=== PATIENT | male | born 1935 | race Caucasian/White ===

== ENCOUNTER 2022-06-24 21:44 | Inpatient (IN) | payer MEDICARE, OTHER ==
[~2022-06-24] VITALS: Ht 162.6 cm; Wt 95.3 kg
[2022-06-24] MEDS ORDERED: CEFEPIME HCL 1 G in IV DEXTROSE 5% 50 ML IV ONE (22:15)
[2022-06-24] MEDS ORDERED: NOREPINEPHRINE BITARTRATE 8 MG in IV NORMAL SALINE 250 ML IV ONE (22:15)
[2022-06-24] MEDS ORDERED: VANCOMYCIN IV 1,000 MG in IV DEXTROSE 5% 250 ML IV ONE (22:15)
[2022-06-24] MEDS ORDERED: CEFEPIME HCL 1 G VIAL ONE (22:33)
[2022-06-24] MEDS ORDERED: VANCOMYCIN IV 200 ML ONE (22:33)
[2022-06-24 22:41] LABS: MEAN CORPUSCULAR HEMOGLOBIN 30.6 uug (23.8-33.4); MEAN CORPUSCULAR VOLUME 95.3 fL (73.0-96.2); PLATELET COUNT (AUTO) 110 K/uL (152-348)
[2022-06-24 22:50] LABS: NEUTROPHILS % (MANUAL) 0 % (42-75)
[2022-06-24 22:58] LABS: *BILIRUBIN,URIN 1+ (NEGATIVE); *BLOOD, URINE NEGATIVE (NEGATIVE); *CLARITY,URINE CLEAR (CLEAR); *COLOR,URINE YELLOW (YELLOW); *KETONES,URINE NEGATIVE (NEGATIVE); *UROBILINOGEN,URINE 0.2 E.U./dl (NORMAL); LEUKOCYTE ESTERASE ,URINE NEGATIVE (NEGATIVE); NITRITE, URINE NEGATIVE (NEGATIVE); UGLUCOSE NEGATIVE (NEGATIVE)
[2022-06-24] MEDS ORDERED: PREG150C PO (23:03)
[2022-06-24] MEDS ORDERED: ALLO300T2 PO (23:03)
[2022-06-24] MEDS ORDERED: PANT40TA49 PO (23:03)
[2022-06-24] MEDS ORDERED: metoprolol PO (23:03)
[2022-06-24] MEDS ORDERED: ATOR40TA PO (23:03)
[2022-06-24] MEDS ORDERED: LISI20TA30 PO (23:03)
[2022-06-24] MEDS ORDERED: FURO40TA5 PO (23:03)
[2022-06-24] MEDS ORDERED: WARF1TAB2 PO (23:03)
[2022-06-24 23:06] LABS: ALANINE AMINOTRANSFERASE 33 U/L (16-63); ALKALINE PHOSPHATASE 71 U/L (50-136); ASPARTATE AMINOTRANSFERASE 39 U/L (15-37); BILIRUBIN,DIRECT 0.3 mg/dL (0.0-0.2); BILIRUBIN,TOTAL 0.6 mg/dL (0.2-1.0); CARBON DIOXIDE 27 mmol/L (21-32); CHLORIDE 109 mmol/L (98-107); CREATININE 2.2 mg/dL (0.6-1.3); GLUCOSE 102 mg/dL (74-106); POTASSIUM 3.9 mmol/L (3.5-5.1); UREA NITROGEN, BLOOD 61 mg/dL (7-18)
[2022-06-25] VITALS (32 sets, daily range): BP systolic 75–149; BP diastolic 36–79
[2022-06-25] MEDS ORDERED: MORPHINE SULFATE 2 MG/1 ML DISP.SYRIN IVP PRN (01:30)
[2022-06-25] MEDS ORDERED: ONDANSETRON 4 MG/2 ML VIAL IV PRN (01:30)
[2022-06-25 01:55] LABS: CARBON DIOXIDE 24 mmol/L (21-32); CHLORIDE 107 mmol/L (98-107); CREATININE 2.1 mg/dL (0.6-1.3); GLUCOSE 174 mg/dL (74-106); POTASSIUM 3.8 mmol/L (3.5-5.1); UREA NITROGEN, BLOOD 61 mg/dL (7-18)
[2022-06-25] MEDS ORDERED: PANTOPRAZOLE SODIUM IV 80 MG in IV DEXTROSE 5% 500 ML IV ONE (02:15)
[2022-06-25] MEDS ORDERED: PANTOPRAZOLE SODIUM 40 MG VIAL IV ONE (02:15)
[2022-06-25 02:18] LABS: *OCCULT BLOOD STOOL NEGATIVE (NEGATIVE)
[2022-06-25 02:26] LABS: MEAN CORPUSCULAR HEMOGLOBIN 30.3 uug (23.8-33.4); MEAN CORPUSCULAR VOLUME 95.1 fL (73.0-96.2); PLATELET COUNT (AUTO) 127 K/uL (152-348)
[2022-06-25] MEDS ORDERED: PANTOPRAZOLE SODIUM 40 MG VIAL ONE ×2 (02:30→22:44)
[2022-06-25] MEDS ORDERED: DIGOXIN 500 MCG/2 ML AMP IV ONE (03:15)
[2022-06-25] MEDS ORDERED: VASOPRESSIN 20 UNIT in IV NORMAL SALINE 40 ML IV PRN (04:00)
[2022-06-25] MEDS ORDERED: VASOPRESSIN 20 UNIT/ML VIAL ONE (05:23)
[2022-06-25] MEDS ORDERED: FUROSEMIDE 40 MG/4 ML VIAL IV SCH (09:00)
[2022-06-25] MEDS ORDERED: WARFARIN SODIUM 1 MG TABLET PO SCH (09:00)
[2022-06-25] MEDS ORDERED: DOCUSATE SODIUM 100 MG CAPSULE PO ONE ×2 (09:16→18:15)
[2022-06-25] MEDS ORDERED: ALLOPURINOL 100 MG TABLET ONE (09:17)
[2022-06-25] MEDS ORDERED: PREGABALIN 100 MG CAPSULE ONE (09:23)
[2022-06-25] MEDS ORDERED: PREGABALIN 50 MG CAPSULE ONE (09:27)
[2022-06-25] MEDS: DOCUSATE SODIUM 100 MG CAPSULE PO SCH ×2 (09:31→17:00)
[2022-06-25] MEDS: ALLOPURINOL 300 MG TABLET PO SCH (09:31)
[2022-06-25] MEDS: PREGABALIN 50 MG CAPSULE PO SCH (09:31)
[2022-06-25] MEDS: PHENYLEPHRINE IV 100 MG in IV NORMAL SALINE 240 ML IV PRN ×2 (09:40→22:21)
[2022-06-25] MEDS ORDERED: IV NORMAL SALINE 500 ML IV ONE (12:30)
[2022-06-25] MEDS ORDERED: CEFEPIME HCL 1 G VIAL ONE (18:14)
[2022-06-25] MEDS: CEFEPIME HCL 1 G in IV DEXTROSE 5% 50 ML IV SCH (18:30)
[2022-06-25 19:11] LABS: *OCCULT BLOOD STOOL POSITIVE (NEGATIVE)
[2022-06-25] MEDS: ATORVASTATIN 40 MG TABLET PO SCH (20:46)
[2022-06-25 22:43] LABS: HEMATOCRIT 34.4 % (36.7-47.1); MEAN CORPUSCULAR HEMOGLOBIN 30.5 uug (23.8-33.4); MEAN CORPUSCULAR VOLUME 94.5 fL (73.0-96.2); PLATELET COUNT (AUTO) 154 K/uL (152-348)
[2022-06-25] MEDS ORDERED: ACETAMINOPHEN 325 MG TABLET ONE (22:44)
[2022-06-25] MEDS: ACETAMINOPHEN 325 MG TABLET PO PRN (22:46)
[2022-06-25] MEDS: PANTOPRAZOLE SODIUM 40 MG VIAL IV SCH (22:46)
[2022-06-26] VITALS (26 sets, daily range): BP systolic 101–133; BP diastolic 45–74
[2022-06-26 02:13] LABS: EOSINOPHILS % (MANUAL) 2 % (0-8); LYMPHOCYTES % (MANUAL) 21 % (20-40); MONOCYTES % (MANUAL) 23 % (2-10); NEUTROPHILS % (MANUAL) 54 % (42-75)
[2022-06-26] MEDS ORDERED: CEFEPIME HCL 1 G VIAL ONE (05:00)
[2022-06-26] MEDS: CEFEPIME HCL 1 G in IV DEXTROSE 5% 50 ML IV SCH ×2 (05:10→17:23)
[2022-06-26 05:20] LABS: HEMATOCRIT 32.4 % (36.7-47.1); MEAN CORPUSCULAR HEMOGLOBIN 30.4 uug (23.8-33.4); MEAN CORPUSCULAR VOLUME 94.5 fL (73.0-96.2); PLATELET COUNT (AUTO) 123 K/uL (152-348)
[2022-06-26 05:27] LABS: ALANINE AMINOTRANSFERASE 34 U/L (16-63); ALKALINE PHOSPHATASE 66 U/L (50-136); ASPARTATE AMINOTRANSFERASE 64 U/L (15-37); BILIRUBIN,TOTAL 0.5 mg/dL (0.2-1.0); CARBON DIOXIDE 24 mmol/L (21-32); CHLORIDE 109 mmol/L (98-107); CREATININE 1.8 mg/dL (0.6-1.3); GLUCOSE 127 mg/dL (74-106); PHOSPHOROUS 2.6 mg/dL (2.5-4.9); POTASSIUM 3.9 mmol/L (3.5-5.1); TOTAL PROTEIN, SERUM 5.5 g/dL (6.4-8.2); UREA NITROGEN, BLOOD 56 mg/dL (7-18)
[2022-06-26 06:27] LABS: EOSINOPHILS % (MANUAL) 6 % (0-8); LYMPHOCYTES % (MANUAL) 25 % (20-40); MONOCYTES % (MANUAL) 21 % (2-10); NEUTROPHILS % (MANUAL) 48 % (42-75)
[2022-06-26] MEDS ORDERED: PANTOPRAZOLE SODIUM 40 MG TABLET.DR PO SCH (07:00)
[2022-06-26] MEDS: PANTOPRAZOLE SODIUM 40 MG VIAL IV SCH ×2 (09:55→20:35)
[2022-06-26] MEDS: PREGABALIN 50 MG CAPSULE PO SCH (09:55)
[2022-06-26] MEDS: ALLOPURINOL 300 MG TABLET PO SCH (09:55)
[2022-06-26] MEDS: DOCUSATE SODIUM 100 MG CAPSULE PO SCH ×2 (09:55→17:05)
[2022-06-26] MEDS ORDERED: VANCOMYCIN IV 1,250 MG in IV DEXTROSE 5% 250 ML IV SCH (10:00)
[2022-06-26] MEDS: ACETAMINOPHEN 325 MG TABLET PO PRN ×2 (10:52→17:05)
[2022-06-26] MEDS: ATORVASTATIN 40 MG TABLET PO SCH (20:35)
[2022-06-26] MEDS: IV NS 1000 ML 1,000 ML IV PRN (20:36)
[2022-06-27] VITALS: BP 116/54
[2022-06-27 06:07] LABS: HEMATOCRIT 31.9 % (36.7-47.1); MEAN CORPUSCULAR HEMOGLOBIN 30.9 uug (23.8-33.4); MEAN CORPUSCULAR VOLUME 94.2 fL (73.0-96.2); PLATELET COUNT (AUTO) 120 K/uL (152-348)
[2022-06-27] MEDS: CEFEPIME HCL 1 G in IV DEXTROSE 5% 50 ML IV SCH ×2 (06:21→17:56)
[2022-06-27 06:25] LABS: CARBON DIOXIDE 22 mmol/L (21-32); CHLORIDE 108 mmol/L (98-107); CREATININE 1.7 mg/dL (0.6-1.3); GLUCOSE 138 mg/dL (74-106); MAGNESIUM 1.6 mg/dL (1.8-2.4); PHOSPHOROUS 1.8 mg/dL (2.5-4.9); POTASSIUM 4.4 mmol/L (3.5-5.1); UREA NITROGEN, BLOOD 53 mg/dL (7-18)
[2022-06-27] MEDS: PANTOPRAZOLE SODIUM 40 MG VIAL IV SCH (08:32)
[2022-06-27] MEDS: DOCUSATE SODIUM 100 MG CAPSULE PO SCH ×2 (08:32→16:19)
[2022-06-27] MEDS: ALLOPURINOL 300 MG TABLET PO SCH (08:32)
[2022-06-27] MEDS: PREGABALIN 50 MG CAPSULE PO SCH (08:32)
[2022-06-27] MEDS ORDERED: MAGNESIUM SULFATE/D5W 100 ML IV SCH (10:00)
[2022-06-27 10:09] LABS: EOSINOPHILS % (MANUAL) 4 % (0-8); LYMPHOCYTES % (MANUAL) 30 % (20-40); MONOCYTES % (MANUAL) 24 % (2-10); NEUTROPHILS % (MANUAL) 42 % (42-75)
[2022-06-27 11:23] VITALS: BP 118/65
[2022-06-27] MEDS: VANCOMYCIN IV 1,250 MG in IV DEXTROSE 5% 250 ML IV SCH (12:41)
[2022-06-27 15:27] VITALS: BP 117/59
[2022-06-27] MEDS: ACETAMINOPHEN 325 MG TABLET PO PRN (15:50)
[2022-06-27] MEDS ORDERED: SODIUM PHOSPHATE MM 15 MMOL in IV NORMAL SALINE 250 ML IV ONE (16:00)
[2022-06-27] MEDS: IV NS 1000 ML 1,000 ML IV PRN (16:11)
[2022-06-27] MEDS: PANTOPRAZOLE SODIUM 40 MG TABLET.DR PO SCH (16:19)
[2022-06-27] MEDS: FUROSEMIDE 20 MG/2 ML VIAL IV SCH (18:09)
[2022-06-27 20:00] VITALS: BP 124/58
[2022-06-27] MEDS: METOPROLOL TARTRATE 25 MG TABLET PO SCH (20:37)
[2022-06-27] MEDS: ATORVASTATIN 40 MG TABLET PO SCH (20:37)
[2022-06-28] VITALS: BP 148/59
[2022-06-28] MEDS: ACETAMINOPHEN 325 MG TABLET PO PRN ×3 (01:55→20:43)
[2022-06-28 04:16] VITALS: BP 140/68
[2022-06-28] MEDS: CEFEPIME HCL 1 G in IV DEXTROSE 5% 50 ML IV SCH ×2 (05:41→17:44)
[2022-06-28] MEDS: PANTOPRAZOLE SODIUM 40 MG TABLET.DR PO SCH ×2 (06:36→16:31)
[2022-06-28 07:01] LABS: HEMATOCRIT 31.9 % (36.7-47.1); MEAN CORPUSCULAR VOLUME 93.3 fL (73.0-96.2); PLATELET COUNT (AUTO) 137 K/uL (152-348)
[2022-06-28 07:14] LABS: CREATININE 1.3 mg/dL (0.6-1.3); MAGNESIUM 1.9 mg/dL (1.8-2.4); PHOSPHOROUS 2.2 mg/dL (2.5-4.9); POTASSIUM 4.4 mmol/L (3.5-5.1)
[2022-06-28] MEDS: FUROSEMIDE 20 MG/2 ML VIAL IV SCH (08:33)
[2022-06-28] MEDS: DOCUSATE SODIUM 100 MG CAPSULE PO SCH ×2 (08:33→16:31)
[2022-06-28] MEDS: PREGABALIN 50 MG CAPSULE PO SCH (08:33)
[2022-06-28] MEDS: ALLOPURINOL 300 MG TABLET PO SCH (08:33)
[2022-06-28] MEDS: METOPROLOL TARTRATE 25 MG TABLET PO SCH ×2 (08:34→20:30)
[2022-06-28] MEDS: REMEDY ESSENTIAL ZINC PASTE 113 GM TOP SCH ×2 (08:37→20:31)
[2022-06-28 11:46] VITALS: BP 120/60
[2022-06-28] MEDS: VANCOMYCIN IV 1,250 MG in IV DEXTROSE 5% 250 ML IV SCH (13:16)
[2022-06-28 15:28] VITALS: BP 114/64
[2022-06-28] MEDS ORDERED: NEUTRA PHOS PACKET PO ONE (15:30)
[2022-06-28 16:26] LABS: BAND % (MANUAL) 2 % (0-10)
[2022-06-28 16:27] LABS: LYMPHOCYTES % (MANUAL) 20 % (20-40)
[2022-06-28 16:28] LABS: EOSINOPHILS % (MANUAL) 6 % (0-8); MONOCYTES % (MANUAL) 12 % (2-10)
[2022-06-28 16:31] LABS: NEUTROPHILS % (MANUAL) 60 % (42-75)
[2022-06-28 20:00] VITALS: BP 124/63
[2022-06-28] MEDS: ATORVASTATIN 40 MG TABLET PO SCH (20:29)
[2022-06-29] VITALS: BP 134/77
[2022-06-29 04:00] VITALS: BP 129/70
[2022-06-29] MEDS: ACETAMINOPHEN 325 MG TABLET PO PRN (04:27)
[2022-06-29] MEDS: CEFEPIME HCL 1 G in IV DEXTROSE 5% 50 ML IV SCH (06:20)
[2022-06-29] MEDS: PANTOPRAZOLE SODIUM 40 MG TABLET.DR PO SCH (06:20)
[2022-06-29 07:12] LABS: CREATININE 1.1 mg/dL (0.6-1.3); MAGNESIUM 2.1 mg/dL (1.8-2.4); PHOSPHOROUS 2.6 mg/dL (2.5-4.9); POTASSIUM 4.5 mmol/L (3.5-5.1)
[2022-06-29 07:26] LABS: HEMATOCRIT 32.2 % (36.7-47.1); MEAN CORPUSCULAR HEMOGLOBIN 30.5 uug (23.8-33.4); PLATELET COUNT (AUTO) 151 K/uL (152-348)
[2022-06-29] MEDS: PREGABALIN 50 MG CAPSULE PO SCH (08:31)
[2022-06-29] MEDS: ALLOPURINOL 300 MG TABLET PO SCH (08:31)
[2022-06-29 08:34] VITALS: BP 141/73
[2022-06-29] MEDS: REMEDY ESSENTIAL ZINC PASTE 113 GM TOP SCH (08:34)
[2022-06-29] MEDS ORDERED: FUROSEMIDE 40 MG TABLET PO SCH (09:00)
[2022-06-29] MEDS: DOCUSATE SODIUM 100 MG CAPSULE PO SCH (09:00)
[2022-06-29] MEDS ORDERED: METOPROLOL TARTRATE 50 MG TABLET PO SCH (09:00)
[2022-06-29] MEDS ORDERED: METO50TA16 PO (11:42)
[2022-06-29] MEDS ORDERED: PANT40TA49 PO (11:42)
[2022-06-29] MEDS ORDERED: LEVO500T90 PO (11:42)
[2022-06-29] MEDS: VANCOMYCIN IV 1,250 MG in IV DEXTROSE 5% 250 ML IV SCH (12:29)
[2022-06-29] MEDS ORDERED: WARFARIN SODIUM 1 MG TABLET PO SCH (17:00)
== END 2022-06-29 14:35 | DRG 871 ==
LOC: ER 21:47 → TRANSITION 06-25 01:28 → TELE3 06-26 08:26 → MEDSURG3 06-29 14:00
PROVIDERS: ADMIT Internal Medicine; ATTEND Nurse Practitioner Acute Care
PROC: 05HD33Z Insertion of Infusion Device into Right Cephalic Vein, Percutaneous Approach (ICD-10-PCS; principal; 2022-06-26)
DX: A41.9 Sepsis, unspecified organism (principal); G93.41 Metabolic encephalopathy; R65.21 Severe sepsis with septic shock; N17.0 Acute kidney failure with tubular necrosis; I48.20 Chronic atrial fibrillation, unspecified; I13.0 Hypertensive heart and chronic kidney disease with heart failure and stage 1 through stage 4 chronic kidney disease, or unspecified chronic kidney disease; I50.32 Chronic diastolic (congestive) heart failure; D68.59 Other primary thrombophilia; E44.0 Moderate protein-calorie malnutrition; J98.11 Atelectasis; R57.9 Shock, unspecified; I48.91 Unspecified atrial fibrillation; T88.7XXA Unspecified adverse effect of drug or medicament, initial encounter; T45.515A Adverse effect of anticoagulants, initial encounter; N18.9 Chronic kidney disease, unspecified; D69.6 Thrombocytopenia, unspecified; D64.9 Anemia, unspecified; E66.01 Morbid (severe) obesity due to excess calories; Z68.36 Body mass index [BMI] 36.0-36.9, adult; I27.20 Pulmonary hypertension, unspecified; I25.10 Atherosclerotic heart disease of native coronary artery without angina pectoris; Z95.1 Presence of aortocoronary bypass graft; Z95.2 Presence of prosthetic heart valve; Z79.01 Long term (current) use of anticoagulants; I73.9 Peripheral vascular disease, unspecified
CPT/HCPCS: 36415; 70030-TC; 70450; 71045; 83605; 83735; 84100; 84484; 85025; 85610; 85730; 87040; 93005; 93307; A4663; C9113; G0378; J0692; J1160; J1940; J2270; J2370; J3370; J3475; J3490; J7040; J7050; J7060; J8499

== ENCOUNTER 2022-06-29 14:59 | Inpatient (IN) | payer MEDICARE, OTHER ==
[~2022-06-29] VITALS: Ht 162.6 cm; Wt 95.3 kg
[~2022-06-29 14:59] MED LIST: ALLO300T2 PO; ATOR40TA PO; FURO40TA5 PO; LEVO500T90 PO; LISI20TA30 PO; METO50TA16 PO; PANT40TA49 PO; PREG150C PO; WARF1TAB2 PO; metoprolol PO
[2022-06-29 16:00] VITALS: BP 129/66
[2022-06-29] MEDS ORDERED: WARFARIN SODIUM 1 MG TABLET PO ONE (17:30)
--- NOTE | 2022-06-29 18:24 | NUR ---
Patient is alert, oriented x3 in farsi, 86 years old male admitted to ARU from tele floor with diagnose of acute metabolic encephalopathy, sob, respirations are even nonlabored,skin warm and dry to touch,family at bedside, ward intact, no hematuria noted, no active bleeding noted, patient noted with both lower extremities with brown discoloration and with very dry skin. both lower extremities are with pitting edema +2, left elbow is swollen and with pitting edema +3, dr grant is aware. warfarin sodium 3.5mg administered as ordered by data communications analyst. no acute distress noted at this time.
[2022-06-29] MEDS: METOPROLOL TARTRATE 50 MG TABLET PO SCH (21:02)
[2022-06-29] MEDS: ATORVASTATIN 40 MG TABLET PO SCH (21:03)
[2022-06-30 04:00] VITALS: BP 132/66
--- NOTE | 2022-06-30 05:07 | NUR ---
AAOx3-4 On 2L viqa nasal cannula, pulse ox 95% All needs attended. Patient having periods of confusion at times. Repositioned for comfort. Smith catheter intact draining yellow urine. Noticed at beginning of shift patient trying to pull out his catheter. noted blood tinged urine on the tubing. Complained of abdominal pain and burning on urination. Dr Duran aware. Xray abdomen done. Ua C&S collected and sent to lab. BLE blackish in color, sacral area reddenned with a small open area in between crack of the sacrum. Will monitor patient. VSS.
[2022-06-30 05:28] LABS: *BILIRUBIN,URIN NEGATIVE (NEGATIVE); *BLOOD, URINE 3+ (NEGATIVE); *CLARITY,URINE TURBID (CLEAR); *COLOR,URINE YELLOW (YELLOW); *KETONES,URINE NEGATIVE (NEGATIVE); *UROBILINOGEN,URINE 0.2 E.U./dl (NORMAL); LEUKOCYTE ESTERASE ,URINE TRACE (NEGATIVE); NITRITE, URINE NEGATIVE (NEGATIVE); PH,URINE 5.5 (5.0-8.0); UGLUCOSE NEGATIVE (NEGATIVE)
[2022-06-30 05:37] LABS: BACTERIA,URINE MODERATE /HPF (NONE SEEN); COARSE GRANULAR CASTS,URINE MODERATE /LPF; RBC,URINE 20-50 /HPF (0-3); SQUAMOUS EPITHELIAL CELL,UR MODERATE /HPF (NONE SEEN)
[2022-06-30 08:00] VITALS: BP 135/68
[2022-06-30] MEDS: levoFLOXacin 500 MG TABLET PO SCH (09:14)
[2022-06-30] MEDS: ALLOPURINOL 300 MG TABLET PO SCH (09:14)
[2022-06-30] MEDS: PREGABALIN 50 MG CAPSULE PO SCH (09:14)
[2022-06-30] MEDS: PANTOPRAZOLE SODIUM 40 MG TABLET.DR PO SCH (09:14)
[2022-06-30] MEDS: FUROSEMIDE 40 MG TABLET PO SCH (09:15)
[2022-06-30] MEDS: METOPROLOL TARTRATE 50 MG TABLET PO SCH ×2 (09:15→20:39)
--- NOTE | 2022-06-30 12:16 | NUR ---
INTERDISCIPLINARY TEAM CONFERENCE
--- NOTE | 2022-06-30 12:38 | NUR ---
WOUND CARE CONSULT: PT EATING AT THIS TIME. ADMISSION PHOTO INDICATES GLUTEAL CREASE OPEN SKIN WITH SCARRING AROUND AREA. PT NOTED TO HAVE HEMOSIDERIN STAINING OF LOWER LEGS WITH EDEMA AND DRY CRUST TO LEFT LOWER LEG, PRESENT ON ADMISSION. RECOMMENDATIONS MADE FOR SKIN PROTECTION. DISCUSSED WITH NURSING STAFF. MD IN AGREEMENT WITH PLAN OF CARE.
[2022-06-30] MEDS ORDERED: REMEDY ESSENTIAL ZINC PASTE 113 GM TOP PRN (12:45)
[2022-06-30] MEDS: MINERAL OIL/PETROLATUM,WHITE 57 GM TUBE TOP SCH (13:35)
[2022-06-30] MEDS ORDERED: ACETAMINOPHEN 325 MG TABLET PO PRN (14:00)
[2022-06-30 16:11] VITALS: BP 120/60
[2022-06-30] MEDS: ACETAMINOPHEN ES 500 MG TABLET PO PRN (16:47)
[2022-06-30] MEDS ORDERED: WARFARIN SODIUM 1 MG TABLET PO SCH (17:00)
--- NOTE | 2022-06-30 19:47 | NUR ---
RECEIVED REPORT FROM SPENCER QUIJANO, VIVI SHIFT. PATIENT IS ALERT & ORIENTED X2-3, AND ABLE TO SPEAK [place]. VITAL SIGNS STABLE. PATIENT HAD COMPLAINT OF PAIN. RN GAVE PAIN MEDICATIONS ORDERED BY MD. PATIENT EXPRESSED COMFORTABLE. X-RAY TAKEN PER MD ORDER. PATIENT PARTICIPATES WITH PHYSICAL AND OCCUPATIONAL THERAPY SCHEDULED. PATIENT TOLERATES PO AND DIET WELL. PATIENT'S & SON VISITED PATIENT. WOUND CARE NURSE ORDERS FOLLOWED DIRECTED. HERNANDEZ CATHETER PATENT AND DRAINING. NO ACUTE DISTRESS. ALL NEEDS MET AT THIS TIME. FALL PRECAUTIONS OBSERVED. CALL LIGHT WITHIN REACH. ENDORSED CARE TO SPENCER VEGA, VIVI SHIFT FOR CONTINUATION OF CARE.
[2022-06-30 20:00] VITALS: BP 117/64
[2022-06-30] MEDS: ATORVASTATIN 40 MG TABLET PO SCH (20:38)
[2022-06-30] MEDS: REMEDY ESSENTIAL ZINC PASTE 113 GM TOP SCH (22:17)
[2022-07-01 04:02] VITALS: BP 121/67
[2022-07-01] MEDS: ACETAMINOPHEN ES 500 MG TABLET PO PRN (04:21)
[2022-07-01 07:51] VITALS: BP 115/52
[2022-07-01] MEDS: FUROSEMIDE 40 MG TABLET PO SCH (08:14)
[2022-07-01] MEDS: ALLOPURINOL 300 MG TABLET PO SCH (08:14)
[2022-07-01] MEDS: levoFLOXacin 500 MG TABLET PO SCH (08:14)
[2022-07-01] MEDS: PREGABALIN 50 MG CAPSULE PO SCH (08:15)
[2022-07-01] MEDS: METOPROLOL TARTRATE 50 MG TABLET PO SCH ×2 (08:15→20:38)
[2022-07-01] MEDS: REMEDY ESSENTIAL ZINC PASTE 113 GM TOP SCH ×2 (08:16→20:40)
[2022-07-01] MEDS: PANTOPRAZOLE SODIUM 40 MG TABLET.DR PO SCH (08:16)
[2022-07-01] MEDS: MINERAL OIL/PETROLATUM,WHITE 57 GM TUBE TOP SCH (08:16)
[2022-07-01 16:18] VITALS: BP 121/67
--- NOTE | 2022-07-01 19:49 | NUR ---
RECEIVED REPORT FROM ALYCE PALMER.
[2022-07-01 20:00] VITALS: BP 118/72
[2022-07-01] MEDS: ATORVASTATIN 40 MG TABLET PO SCH (20:37)
[2022-07-02 04:00] VITALS: BP_SYST 111; BP_SYST 115; BP_DIAS 49; BP_DIAS 58
--- NOTE | 2022-07-02 07:18 | NUR ---
REPORT GIVEN TO MELBA PALMER.
[2022-07-02 07:28] LABS: CREATININE 1.1 mg/dL (0.6-1.3); POTASSIUM 4.8 mmol/L (3.5-5.1)
[2022-07-02 07:39] VITALS: BP 125/55
[2022-07-02] MEDS: levoFLOXacin 500 MG TABLET PO SCH (08:21)
[2022-07-02] MEDS: ACETAMINOPHEN ES 500 MG TABLET PO PRN ×2 (08:22→15:11)
[2022-07-02] MEDS: PREGABALIN 50 MG CAPSULE PO SCH (08:22)
[2022-07-02] MEDS: PANTOPRAZOLE SODIUM 40 MG TABLET.DR PO SCH (08:22)
[2022-07-02] MEDS: ALLOPURINOL 300 MG TABLET PO SCH (08:22)
[2022-07-02] MEDS: FUROSEMIDE 40 MG TABLET PO SCH (08:23)
[2022-07-02] MEDS: METOPROLOL TARTRATE 50 MG TABLET PO SCH ×2 (08:23→20:19)
[2022-07-02] MEDS: MINERAL OIL/PETROLATUM,WHITE 57 GM TUBE TOP SCH (08:26)
[2022-07-02] MEDS: REMEDY ESSENTIAL ZINC PASTE 113 GM TOP SCH ×2 (08:28→20:19)
--- NOTE | 2022-07-02 12:44 | NUR ---
INDIVIDUALIZED PLAN OF CARE
--- NOTE | 2022-07-02 14:32 | NUR ---
PATIENT SITTING IN CHAIR NO DISTRESS NOTED. TOLERATING. SON CALLED PATIENT INFORMED. WILL CONTINUE TO MONITOR.
[2022-07-02 15:48] VITALS: BP 124/76
[2022-07-02] MEDS ORDERED: WARFARIN SODIUM 1 MG TABLET PO SCH (17:00)
[2022-07-02 20:00] VITALS: BP 120/70
[2022-07-02] MEDS: ATORVASTATIN 40 MG TABLET PO SCH (20:19)
[2022-07-03 04:00] VITALS: BP 101/74
[2022-07-03] MEDS: ALLOPURINOL 300 MG TABLET PO SCH (08:24)
[2022-07-03] MEDS: PANTOPRAZOLE SODIUM 40 MG TABLET.DR PO SCH (08:24)
[2022-07-03] MEDS: PREGABALIN 50 MG CAPSULE PO SCH (08:25)
[2022-07-03] MEDS: METOPROLOL TARTRATE 50 MG TABLET PO SCH ×2 (08:31→20:14)
[2022-07-03] MEDS: MINERAL OIL/PETROLATUM,WHITE 57 GM TUBE TOP SCH (08:32)
[2022-07-03] MEDS: REMEDY ESSENTIAL ZINC PASTE 113 GM TOP SCH ×2 (08:32→20:14)
[2022-07-03] MEDS: FUROSEMIDE 40 MG TABLET PO SCH (08:34)
[2022-07-03] MEDS: WARFARIN SODIUM 1 MG TABLET PO SCH (17:30)
[2022-07-03] MEDS: ATORVASTATIN 40 MG TABLET PO SCH (20:13)
[2022-07-03 20:30] VITALS: BP 133/59
[2022-07-03] MEDS: ACETAMINOPHEN ES 500 MG TABLET PO PRN (23:37)
[2022-07-04 04:50] VITALS: BP 130/65
--- NOTE | 2022-07-04 06:27 | NUR ---
RECEIVED PT AT MIDNIGHT IN STABLE CONDITION, ON BED, CALL LIGHT WITHIN REACH, BED IN LOW POSITION,DENIED ANY PAIN, HERNANDEZ INTACT, DRAINING WELL. aLL NEEDS ARE ATTENDED AND MET.
[2022-07-04 08:11] VITALS: BP 124/57
[2022-07-04] MEDS: METOPROLOL TARTRATE 50 MG TABLET PO SCH ×2 (09:10→21:00)
[2022-07-04] MEDS: PREGABALIN 50 MG CAPSULE PO SCH (09:11)
[2022-07-04] MEDS: MINERAL OIL/PETROLATUM,WHITE 57 GM TUBE TOP SCH (09:11)
[2022-07-04] MEDS: PANTOPRAZOLE SODIUM 40 MG TABLET.DR PO SCH (09:11)
[2022-07-04] MEDS: FUROSEMIDE 40 MG TABLET PO SCH (09:11)
[2022-07-04] MEDS: ALLOPURINOL 300 MG TABLET PO SCH (09:11)
[2022-07-04] MEDS: REMEDY ESSENTIAL ZINC PASTE 113 GM TOP SCH ×2 (09:12→21:00)
[2022-07-04] MEDS: ENOXAPARIN SODIUM 100 MG/ML DISP.SYRIN SQ SCH ×2 (12:00→22:28)
[2022-07-04 15:51] VITALS: BP 144/68
[2022-07-04] MEDS: WARFARIN SODIUM 1 MG TABLET PO SCH (16:43)
[2022-07-04 20:32] VITALS: BP 98/65
[2022-07-04] MEDS: ATORVASTATIN 40 MG TABLET PO SCH (21:00)
[2022-07-05 08:20] VITALS: BP 148/61
[2022-07-05] MEDS: PREGABALIN 50 MG CAPSULE PO SCH (09:43)
[2022-07-05] MEDS: FUROSEMIDE 40 MG TABLET PO SCH (09:44)
[2022-07-05] MEDS: MINERAL OIL/PETROLATUM,WHITE 57 GM TUBE TOP SCH (09:44)
[2022-07-05] MEDS: PANTOPRAZOLE SODIUM 40 MG TABLET.DR PO SCH (09:44)
[2022-07-05] MEDS: METOPROLOL TARTRATE 50 MG TABLET PO SCH ×2 (09:44→21:05)
[2022-07-05] MEDS: ALLOPURINOL 300 MG TABLET PO SCH (09:44)
[2022-07-05] MEDS: REMEDY ESSENTIAL ZINC PASTE 113 GM TOP SCH ×2 (09:45→21:08)
--- NOTE | 2022-07-05 09:58 | NUR ---
Notified PT that pt and pt's family is requesting a SHOWER TODAY. They will let the therapists know.
--- NOTE | 2022-07-05 10:56 | NUR ---
SHOWER TOMORROW! Pt very angry and frustrated that there is no OT to give him a shower today. Reassured pt that we will communicate that he needs a shower tomorrow. Joslyn, PT will notify Koki. I will endorse to night shift manager RN.
[2022-07-05] MEDS: ENOXAPARIN SODIUM 100 MG/ML DISP.SYRIN SQ SCH ×2 (11:42→21:07)
[2022-07-05 16:44] VITALS: BP 136/72
[2022-07-05] MEDS: WARFARIN SODIUM 1 MG TABLET PO SCH (17:25)
[2022-07-05] MEDS: TRAMADOL HCL 50 MG TABLET PO PRN (17:31)
[2022-07-05 20:00] VITALS: BP 117/52
--- NOTE | 2022-07-05 20:00 | NUR ---
Bladder scan done. Result = 123ml. Pt incontinent of urine. Moderate to large amount of yellowish urine. Perineal care. Diaper changed. Z-guard applied to bilateral groin area.
[2022-07-05] MEDS: ATORVASTATIN 40 MG TABLET PO SCH (21:05)
[2022-07-05] MEDS: ACETAMINOPHEN ES 500 MG TABLET PO PRN (21:05)
--- NOTE | 2022-07-05 21:05 | NUR ---
Pt verbalized MACEDO 02/01. Tylenol given. Pt reassessed after 1 hour. Pt asleep. No s/s of pain
--- NOTE | 2022-07-06 01:09 | NUR ---
Bladder scan done. Result = 123ml . Noted incontinent of urine. Change diaper.
[2022-07-06 04:00] VITALS: BP 109/66
[2022-07-06] MEDS: TRAMADOL HCL 50 MG TABLET PO PRN (04:41)
--- NOTE | 2022-07-06 05:59 | NUR ---
Bladder scan done at about 0400 am. Result = 134ml . Noted incontinent of urine. Change diaper. Pt verbaa
--- NOTE | 2022-07-06 07:01 | NUR ---
Bladder scan done at about 0400 am. Result = 134ml . Noted incontinent of urine. Change diaper. Pt verbalized pain on left abdomen. Medication given. Pt sleepy thereafter and verbalized relief from pain. Pt. sitting up in room watching TV at this time. No discomfort noted or verbalized
[2022-07-06 08:00] VITALS: BP 119/67
[2022-07-06] MEDS: FUROSEMIDE 40 MG TABLET PO SCH (08:22)
[2022-07-06] MEDS: PANTOPRAZOLE SODIUM 40 MG TABLET.DR PO SCH (08:22)
[2022-07-06] MEDS: ALLOPURINOL 300 MG TABLET PO SCH (08:22)
[2022-07-06] MEDS: PREGABALIN 50 MG CAPSULE PO SCH (08:22)
[2022-07-06] MEDS: METOPROLOL TARTRATE 50 MG TABLET PO SCH ×2 (08:23→21:07)
[2022-07-06] MEDS: REMEDY ESSENTIAL ZINC PASTE 113 GM TOP SCH ×2 (09:07→21:11)
[2022-07-06] MEDS: ENOXAPARIN SODIUM 100 MG/ML DISP.SYRIN SQ SCH ×2 (09:07→21:12)
[2022-07-06] MEDS: MINERAL OIL/PETROLATUM,WHITE 57 GM TUBE TOP SCH (09:09)
--- NOTE | 2022-07-06 09:42 | NUR ---
0800-Bladder scan done with 55 urine residual result. Patient denies any bladder discomfort. Has a soaked urine diaper; routine care provided. Skin barrier-Marci appliied to groin/scrotum areas as ordered by . Addendum: 07/06/22 at 0944 by RASHEL KRISHNA RN Amended: Links added.
--- NOTE | 2022-07-06 13:47 | NUR ---
0730- patient alert and oriented, denies pain, no sign of bladder retention noted at this time, oral fluids encouraged as tolerated. 0900 - Patient medications administered, no bladder retention noted , voiding well, incontinent of bladder and bowel.
--- NOTE | 2022-07-06 14:39 | NUR ---
Bladder scan performed with 0mL urine residual, no complaint of bladder discomfort, will continue to monitor Addendum: 07/06/22 at 1441 by RASHEL KRISHNA RN Amended: Links added.
[2022-07-06 16:00] VITALS: BP 113/64
[2022-07-06] MEDS ORDERED: WARFARIN SODIUM 4 MG TABLET PO SCH (17:00)
--- NOTE | 2022-07-06 17:45 | NUR ---
Bladder scan performed 0 mL of urine retention, son reported that "he just urinated 200 mL", will continue to monitor for signs and symptoms of urine retention, Addendum: 07/06/22 at 1750 by RASHEL KRISHNA RN Amended: Links added.
--- NOTE | 2022-07-06 18:26 | NUR ---
Patient alert and oriented, able communicate his needs and follow directions. No C/O pain during shift, extensive assist provided with ADLs and at all times; patient voiding well, care provided at routine intervals and as needed; Patient denies bladder discomfort, bladder scans done and reordered as ordered. Patient still with bilateral groin skin excoriation, coccyx laceration; and BLE scaly/skin discoloration. Handled gently and carefully during care. PT=17.7 and INR=1.69, no s/s of bleeding noted. All safety precautions observed. Needs anticipated promptly and met in a timely manner.
[2022-07-06 20:00] VITALS: BP 111/56
[2022-07-06] MEDS: ATORVASTATIN 40 MG TABLET PO SCH (21:06)
--- NOTE | 2022-07-06 21:19 | NUR ---
Bladder scan done @ 2100 no urine noted, 0 ml noted. Patient been using the urinal to void. Denies any bladder discomfort noted. Will monitor patient.
[2022-07-07] MEDS: ACETAMINOPHEN ES 500 MG TABLET PO PRN (03:44)
[2022-07-07 04:25] VITALS: BP 112/56
--- NOTE | 2022-07-07 04:33 | NUR ---
Awake alert and oriented x2-3 forgetful at times. VSS. Needs attended. Fall precautions maintained. Siderails up for safety. Patient been having small amounts of urine noted. Bladder scan done @ 0330am, noted 250ml on the bladder. Straight cath patient per MD's order, obtained 260ml of yellow urine noted. Patient felt much better. Will monitor patient. Complained of headache, Tylenol 500mg given.
[2022-07-07] MEDS: TRAMADOL HCL 50 MG TABLET PO PRN ×2 (07:43→20:37)
[2022-07-07 08:00] VITALS: BP 129/76
[2022-07-07] MEDS: PANTOPRAZOLE SODIUM 40 MG TABLET.DR PO SCH (08:37)
[2022-07-07] MEDS: FUROSEMIDE 40 MG TABLET PO SCH (08:37)
[2022-07-07] MEDS: PREGABALIN 50 MG CAPSULE PO SCH (08:37)
[2022-07-07] MEDS: ALLOPURINOL 300 MG TABLET PO SCH (08:37)
[2022-07-07] MEDS: ENOXAPARIN SODIUM 100 MG/ML DISP.SYRIN SQ SCH ×2 (08:40→20:27)
[2022-07-07] MEDS: MINERAL OIL/PETROLATUM,WHITE 57 GM TUBE TOP SCH (08:43)
[2022-07-07] MEDS: REMEDY ESSENTIAL ZINC PASTE 113 GM TOP SCH ×2 (08:44→20:40)
--- NOTE | 2022-07-07 09:00 | NUR ---
Bladder scan done as ordered with 95cc residual, patient denies any bladder discomfort/pain. Will continue to monitor. Addendum: 07/07/22 at 1007 by RASHEL KRISHNA RN Amended: Links added.
[2022-07-07] MEDS: METOPROLOL TARTRATE 50 MG TABLET PO SCH ×2 (09:23→20:25)
--- NOTE | 2022-07-07 13:00 | NUR ---
Bladder scan done as ordered with 33cc residual, patient denies any bladder discomfort/pain. Will continue to monitor. Addendum: 07/07/22 at 1721 by RASHEL KRISHNA RN Noted incontinent of urine. Change diaper.
--- NOTE | 2022-07-07 15:30 | NUR ---
INTERDISCIPLINARY TEAM CONFERENCE
[2022-07-07 16:00] VITALS: BP 125/66
[2022-07-07] MEDS: WARFARIN SODIUM 5 MG TABLET PO SCH (16:28)
[2022-07-07 19:36] VITALS: BP 114/66
[2022-07-07] MEDS: ATORVASTATIN 40 MG TABLET PO SCH (20:25)
--- NOTE | 2022-07-08 03:29 | NUR ---
Awake alert and oriented x3-4 In good spirits. All needs attended. Tolerated all meds without difficulty. OOB to chair with assist. Son in with patient. No acute distress noted. Bladder scan done q 4hrs as needed. VSS. Noted 40cc in bladder @ 2100. Voided a good amount of yellow urine 400cc. Will monitor patient. Complained of headache, ultram given. Fall precautions maintained. Call morales within reach. No further complaints noted. Bladder scan @ 0200am 30ml noted.Kept comfortable.
[2022-07-08 04:50] VITALS: BP 130/67
[2022-07-08 06:19] LABS: HEMATOCRIT 26.8 % (36.7-47.1); MEAN CORPUSCULAR HEMOGLOBIN 31.5 uug (23.8-33.4); MEAN CORPUSCULAR VOLUME 94.3 fL (73.0-96.2); PLATELET COUNT (AUTO) 238 K/uL (152-348)
[2022-07-08 07:11] LABS: CARBON DIOXIDE 33 mmol/L (21-32); CHLORIDE 103 mmol/L (98-107); CREATININE 1.2 mg/dL (0.6-1.3); GLUCOSE 93 mg/dL (74-106); POTASSIUM 4.5 mmol/L (3.5-5.1); UREA NITROGEN, BLOOD 23 mg/dL (7-18)
[2022-07-08 07:55] VITALS: BP 110/56
[2022-07-08] MEDS: FUROSEMIDE 40 MG TABLET PO SCH (08:38)
[2022-07-08] MEDS: METOPROLOL TARTRATE 50 MG TABLET PO SCH ×2 (08:39→20:10)
[2022-07-08] MEDS: PREGABALIN 50 MG CAPSULE PO SCH (08:39)
[2022-07-08] MEDS: ALLOPURINOL 300 MG TABLET PO SCH (08:39)
[2022-07-08] MEDS: PANTOPRAZOLE SODIUM 40 MG TABLET.DR PO SCH (08:39)
[2022-07-08] MEDS: REMEDY ESSENTIAL ZINC PASTE 113 GM TOP SCH ×2 (09:12→20:11)
[2022-07-08] MEDS: MINERAL OIL/PETROLATUM,WHITE 57 GM TUBE TOP SCH (09:12)
[2022-07-08] MEDS: ENOXAPARIN SODIUM 100 MG/ML DISP.SYRIN SQ SCH ×2 (09:24→20:14)
[2022-07-08 10:22] LABS: BAND % (MANUAL) 1 % (0-10); EOSINOPHILS % (MANUAL) 8 % (0-8); LYMPHOCYTES % (MANUAL) 16 % (20-40); MONOCYTES % (MANUAL) 12 % (2-10); NEUTROPHILS % (MANUAL) 63 % (42-75)
[2022-07-08] MEDS: ACETAMINOPHEN ES 500 MG TABLET PO PRN ×2 (11:18→22:47)
[2022-07-08 15:50] VITALS: BP 112/63
[2022-07-08] MEDS: WARFARIN SODIUM 5 MG TABLET PO SCH (16:33)
--- NOTE | 2022-07-08 18:18 | NUR ---
Pt. noted to be stable during the shift. No acute distress noted. Pt. able to urinate during the shift and bladder scanning done and no need for catheterization. Call light within reach. All need attended and met. Compliance with the care given. Will keep monitoring the patient.
[2022-07-08 20:00] VITALS: BP 106/64
[2022-07-08] MEDS: ATORVASTATIN 40 MG TABLET PO SCH (20:09)
[2022-07-08] MEDS: TRAMADOL HCL 50 MG TABLET PO PRN (20:10)
[2022-07-09 04:00] VITALS: BP 116/61
--- NOTE | 2022-07-09 04:51 | NUR ---
AAOx3-4 with periods of forgetfulness at times.Attended to needs. Bladder scan monitored. No urinary retention noted. Voiding well in the urinal. Complained of headaches, Ultram 50 mg given for pain with relief noted. Needs attended. Kept comfortable. Fall precautions maintained. Siderails up for safety.
[2022-07-09 07:54] VITALS: BP 121/69
[2022-07-09] MEDS: ENOXAPARIN SODIUM 100 MG/ML DISP.SYRIN SQ SCH (08:34)
[2022-07-09] MEDS: PANTOPRAZOLE SODIUM 40 MG TABLET.DR PO SCH (08:35)
[2022-07-09] MEDS: PREGABALIN 50 MG CAPSULE PO SCH (08:35)
[2022-07-09] MEDS: ALLOPURINOL 300 MG TABLET PO SCH (08:35)
[2022-07-09] MEDS: METOPROLOL TARTRATE 50 MG TABLET PO SCH ×2 (08:46→20:43)
[2022-07-09] MEDS: REMEDY ESSENTIAL ZINC PASTE 113 GM TOP SCH ×2 (08:47→20:44)
[2022-07-09] MEDS: FUROSEMIDE 40 MG TABLET PO SCH (08:47)
[2022-07-09] MEDS: MINERAL OIL/PETROLATUM,WHITE 57 GM TUBE TOP SCH (08:48)
[2022-07-09] MEDS: ACETAMINOPHEN ES 500 MG TABLET PO PRN (10:32)
[2022-07-09 16:01] VITALS: BP 117/57
[2022-07-09] MEDS: WARFARIN SODIUM 5 MG TABLET PO SCH (16:35)
--- NOTE | 2022-07-09 17:23 | NUR ---
Pt. noted to be stable during the shift. Able to urinate and no urinary retention noted. Call light within reach. Alert and oriented. No c/o pain. All safety measure applied. Compliance with the care given. Will keep monitoring the patient.
[2022-07-09 20:00] VITALS: BP 116/66
[2022-07-09] MEDS: TRAMADOL HCL 50 MG TABLET PO PRN (20:43)
[2022-07-09] MEDS: ATORVASTATIN 40 MG TABLET PO SCH (20:44)
[2022-07-10 04:00] VITALS: BP 112/62
[2022-07-10 07:53] VITALS: BP 123/62
[2022-07-10] MEDS: PREGABALIN 50 MG CAPSULE PO SCH (09:32)
[2022-07-10] MEDS: ALLOPURINOL 300 MG TABLET PO SCH (10:12)
[2022-07-10] MEDS: MINERAL OIL/PETROLATUM,WHITE 57 GM TUBE TOP SCH (10:12)
[2022-07-10] MEDS: FUROSEMIDE 40 MG TABLET PO SCH (10:12)
[2022-07-10] MEDS: PANTOPRAZOLE SODIUM 40 MG TABLET.DR PO SCH (10:12)
[2022-07-10] MEDS: REMEDY ESSENTIAL ZINC PASTE 113 GM TOP SCH (10:13)
[2022-07-10 10:15] VITALS: BP 105/66
[2022-07-10] MEDS: METOPROLOL TARTRATE 50 MG TABLET PO SCH (10:15)
[2022-07-10] MEDS: ACETAMINOPHEN ES 500 MG TABLET PO PRN (12:15)
--- NOTE | 2022-07-10 14:25 | NUR ---
Received report from Fish RN, NOC Shift. Patient is alert and oriented x3-4, and able to speak [place]. Vital signs stable. Patient participates with occupational and physical therapy per schedule. Patient had one complain of pain. RN gave medications as ordered. Patient expressed comfortable. Patient tolerates PO and diet well. Patient had bowel movement and adequate pee. Patient aware and agreeable to being discharge today. RN proceeded with discharge. Patient son called, RN updated son on patient's discharge and condition. Patient belongings list signed, and accounted for. RN provided education regarding discharge. Patient verbalized understanding. All questions answered. Patient signs discharge education documentation. Discharge photos taken. RN gave report to [facility]. Patient left in stable condition with [facility].
== END 2022-07-10 14:05 | disposition home health service (06) | DRG 291 ==
PROVIDERS: ADMIT Physical Medicine & Rehabilitation Pain Medicine; ATTEND Physical Medicine & Rehabilitation Pain Medicine
DX: I13.0 Hypertensive heart and chronic kidney disease with heart failure and stage 1 through stage 4 chronic kidney disease, or unspecified chronic kidney disease (principal); G93.41 Metabolic encephalopathy; I50.33 Acute on chronic diastolic (congestive) heart failure; N17.0 Acute kidney failure with tubular necrosis; D68.59 Other primary thrombophilia; E44.0 Moderate protein-calorie malnutrition; I48.20 Chronic atrial fibrillation, unspecified; N17.9 Acute kidney failure, unspecified; J98.11 Atelectasis; D64.9 Anemia, unspecified; E66.01 Morbid (severe) obesity due to excess calories; E88.09 Other disorders of plasma-protein metabolism, not elsewhere classified; I27.20 Pulmonary hypertension, unspecified; N18.9 Chronic kidney disease, unspecified; Z95.1 Presence of aortocoronary bypass graft; R53.81 Other malaise; D63.1 Anemia in chronic kidney disease; R53.1 Weakness; D69.6 Thrombocytopenia, unspecified; I25.10 Atherosclerotic heart disease of native coronary artery without angina pectoris; I73.9 Peripheral vascular disease, unspecified; M89.8X9 Other specified disorders of bone, unspecified site; Z79.01 Long term (current) use of anticoagulants; Z95.2 Presence of prosthetic heart valve
CPT/HCPCS: 36415; 70030-TC; 73521; 74018; 85025; 85610; 97535-GO-CO; A6209; A6213; A9150; C1758; J1650